=== PATIENT | female | born 1955 | race Two or more races ===

== ENCOUNTER 2017-05-26 20:36 | Emergency (ER) | payer SELFPAY ==
[2017-05-26] MEDS ORDERED: Ibuprofen TAB* 600 MG PO ONE (21:24)
--- NOTE | 2017-05-26 21:54 | RAD ---
Indication: LEFT wrist through elbow pain post injury. Comparison: No relevant prior exams available on the [facility] PACS for comparison. Technique: AP and lateral views LEFT radius and ulna. AP, lateral, and oblique views LEFT wrist. Report: Nonacute fracture at the trochlear notch of the olecranon of the humerus with partial osseous bridging and peripheral callus formation. No acute fracture of the forearm evident. Normal articular alignment. 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 Small elbow joint effusion. Normal articular alignment at the wrist. No fracture evident about the wrist. Polyarticular mild osteoarthritis at the wrist. Mild ulnar plus variance which increases stress on the triangle fibrocartilage. Mild nonfocal soft tissue swelling at the wrist. IMPRESSION: 1. No radiographic evidence for acute fracture at the forearm or wrist. 2. Fracture with at least partial osseous bridging at the trochlear notch of the olecranon process of the ulna. 3. Advanced elbow and mild wrist osteoarthritis.
--- NOTE | 2017-05-26 21:54 | RAD ---
Indication: LEFT wrist through elbow pain post injury. Comparison: No relevant prior exams available on the [facility] PACS for comparison. Technique: AP and lateral views LEFT radius and ulna. AP, lateral, and oblique views LEFT wrist. Report: Nonacute fracture at the trochlear notch of the olecranon of the humerus with partial osseous bridging and peripheral callus formation. No acute fracture of the forearm evident. Normal articular alignment. 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 Small elbow joint effusion. Normal articular alignment at the wrist. No fracture evident about the wrist. Polyarticular mild osteoarthritis at the wrist. Mild ulnar plus variance which increases stress on the triangle fibrocartilage. Mild nonfocal soft tissue swelling at the wrist. IMPRESSION: 1. No radiographic evidence for acute fracture at the forearm or wrist. 2. Fracture with at least partial osseous bridging at the trochlear notch of the olecranon process of the ulna. 3. Advanced elbow and mild wrist osteoarthritis.
--- NOTE | 2017-05-26 22:27 | ED ---
Upper Extremity Pain - HPI Summary HPI Summary: 62 female presents with complaints of elbow pain after a fall that occurred just prior to arrival. Patient was at work and was walking down a slippery ramp when she slipped and fell landing onto her left arm. She states her pain is from her elbow to her left wrist. She described the pain to feeling like she hit her funny bone but different. Admits to some numbness/tingling. Denies hand or finger injury. Did not hit her head. No LOC. Admits to her neck and left shoulder being sore but has FROM. No other complaints or injuries. Denies bruising and swelling at this time. No PMHx. Is currently taking suboxone. - History of Current Complaint Chief Complaint: EDExtremityUpper Stated Complaint: FALL/LEFT ARM-WRIST INJURY Time Seen by Provider: 05/26/17 21:02 Hx Obtained From: Patient Mechanism Of Injury: Fall From A Standing Position Onset/Duration: Started Hours Ago, Traumatic, Still Present, Worse Since Timing: Constant Severity Initially: Moderate Severity Currently: Moderate Pain Location: Elbow, Forearm, Wrist - left Character: Sharp, Aching, Throbbing Aggravating Factor(s): Movement Alleviating Factor(s): Nothing Associated Signs & Symptoms: Positive: Negative, Numbness/Tingling Related History: Dominant Hand Right - Allergies/Home Medications Allergies/Adverse Reactions: Allergies Allergy/AdvReac Type Severity Reaction Status Date / Time No Known Allergies Allergy Verified 02/19/16 20:00 PMH/Surg Hx/FS Hx/Imm Hx Endocrine/Hematology History: Denies: Hx Diabetes Cardiovascular History: Denies: Hx Hypotension Respiratory History: Reports: Hx Asthma, Hx Chronic Bronchitis GI History: Reports: Hx Ileostomy - trauma - since removed Sensory History: Reports: Hx Contacts or Glasses Opthamlomology History: Reports: Hx Contacts or Glasses Psychiatric History: Reports: Hx Suicide Attempt, Hx Substance Abuse - Surgical History Surgery Procedure, Year, and Place: Colostomy (age ~26); Csection X3 - Immunization History Date of Tetanus Vaccine: pt states unsure Date of Influenza Vaccine: pt states unsure Immunizations Up to Date: Yes Infectious Disease History: No Infectious Disease History: Denies: Traveled Outside the [place] in Last 30 Days - Family History Known Family History: Positive: None - Social History Alcohol Use: None Substance Use Type: Reports: None Substance Use Comment - Amount & Last Used: hx, on suboxone Hx Tobacco Use: Yes Smoking Status (MU): Light Every Day Tobacco Smoker Type: Cigarettes Review of Systems Constitutional: Negative Cardiovascular: Negative Respiratory: Negative Positive: Arthralgia, Myalgia, Decreased ROM - left elbow and forearm Skin: Negative Positive: Paresthesia All Other Systems Reviewed And Are Negative: Yes Physical Exam Triage Information Reviewed: Yes Vital Signs On Initial Exam: Initial Vitals Temp Pulse Resp BP Pulse Ox 97.3 F 70 16 154/90 100 05/26/17 20:40 05/26/17 20:40 05/26/17 20:40 05/26/17 20:40 05/26/17 20:40 Vital Signs Reviewed: Yes Appearance: Positive: Well-Appearing, Pain Distress - moderate with any movement of left arm Skin: Positive: Warm, Skin Color Reflects Adequate Perfusion, Dry, Other - no step off, crepitus or obvious deformity. no ecchymosis or edema.. Negative: Cold, Numb, Erythema @ Head/Face: Positive: Normal Head/Face Inspection Eyes: Positive: Normal, EOMI, TAMARA, Conjunctiva Clear ENT: Positive: Hearing grossly normal Neck: Positive: Supple, Nontender Respiratory/Lung Sounds: Positive: Clear to Auscultation, Breath Sounds Present. Negative: Rales, Rhonchi, Wheezes Cardiovascular: Positive: Normal, RRR, Pulses are Symmetrical in both Upper and Lower Extremities. Negative: Murmur, Rub Musculoskeletal: Positive: Limited @ - with elbow flexion and extension, Pain @ - left elbow on palpation and with movement. Negative: Interruption @, Edema Left, Edema Right Neurological: Positive: Normal, Sensory/Motor Intact - sensation intact and normal, Alert, Oriented to Person Place, Time, CN Intact II-III, NV Bundle Intact Distally, Normal Gait Psychiatric: Positive: Affect/Mood Appropriate AVPU Assessment: Alert - Natalia Coma Scale Best Eye Response: 4 - Spontaneous Best Motor Response: 6 - Obeys Commands Best Verbal Response: 5 - Oriented Procedures - Splinting Location: left elbow, forearm Hand-Made Type: plaster Splint: long arm Pre-Proc Neuro Vasc Exam: normal Post-Proc Neuro Vasc Exam: normal, unchanged from pre-exam Diagnostics - Vital Signs Vital Signs Temp Pulse Resp BP Pulse Ox 05/26/17 20:40 97.3 F 70 16 154/90 100 - Laboratory Lab Statement: Any lab studies that have been ordered have been reviewed, and results considered in the medical decision making process. - Radiology left forearm Xray Interpretation: Positive (See Comments) - 1. No radiographic evidence for acute fracture at the forearm or wrist. 2. Fracture with at least partial osseous bridging at the trochlear notch of the olecranon process of the ulna. 3. Advanced elbow and mild wrist osteoarthritis. left wrist Xray Interpretation: No Acute Changes Radiology Interpretation Completed By: Radiologist Course/Dx - Course Course Of Treatment: Istop Reference #: [id number]. Given toradol for pain due to patient's preference and being on suboxone. X-ray obtained and positive for trochlear notch fracture of left elbow. Elbow splinted and placed in sling. Follow up ortho. Naproxen for pain at home. RICE. Aware of worsening signs and symptoms to watch out for and return if occur. - Diagnoses Differential Diagnosis/HQI/PQRI: Positive: Contusion, Fracture (Closed), Hematoma, Strain, Sprain Provider Diagnoses: Elbow fracture, left Discharge - Discharge Plan Condition: Stable Disposition: HOME Prescriptions: Naproxen TAB* [Naprosyn 250 mg TAB*] 500 mg PO Q8H PRN #30 tab PRN Reason: Pain Patient Education Materials: Elbow Fracture (ED), Splint Care (ED) Forms: *Work Release Referrals: Liudmila Akbar MD [Primary Care Provider] - Vani Acosta MD [Medical Doctor] - Additional Instructions: Rest, elevate and ice your elbow. Do not remove splint. Do not get splint wet. Take Naproxen starting tomorrow to help with pain and inflammation. Take with food to avoid upset stomach. If you develop worsening pain, burning or severe numbness tingling along with cold fingers, or unable to move fingers please seek medical attention immediately. Make an appointment with Orthopedics to be seen this week. Follow up with PCP.
[2017-05-26] MEDS ORDERED: Ketorolac INJ* 60 MG/2 ML VIAL IM ONE (22:47)
[2017-05-26] MEDS ORDERED: Ketorolac INJ* 60 MG/2 ML VIAL ONE (22:49)
[2017-05-26 23:29] VITALS: BP 131/81
== END 2017-05-26 23:28 | disposition home or self-care (01) ==
LOC: ED 20:36
DX: S42.402A Unspecified fracture of lower end of left humerus, initial encounter for closed fracture (principal); W19.XXXA Unspecified fall, initial encounter; Y93.9 Activity, unspecified; Y92.9 Unspecified place or not applicable; F17.210 Nicotine dependence, cigarettes, uncomplicated
CPT/HCPCS: 96372; 99282; A9270-GY; J1885

== ENCOUNTER 2017-11-06 15:21 | Emergency (ER) | payer OTHER ==
[2017-11-06 16:10] VITALS: BP 143/102
--- NOTE | 2017-11-06 16:40 | RAD ---
Indication: Shortness of breath. 2 views of the chest including dual energy PA views demonstrate no mediastinal shift. Heart is of normal size and configuration. Hyperinflated lung queen are noted. When compared to previous exam of February 19, 2016 no significant change is noted. IMPRESSION: Hyperinflated lung queen without evidence of pneumonia.
[2017-11-06] MEDS ORDERED: Albuterol/Ipratropium NEB.SOL* Albuterol 2.5 MG/Ipratropium 0.5 MG 3 ML INH ONE (17:04)
[2017-11-06] MEDS ORDERED: methylPREDNISolone 125 MG* 2 ML VIAL IV ONE (17:04)
[2017-11-06 17:07] LABS: Hematocrit 38 % (35-47); Hemoglobin 12.2 g/dl (12.0-16.0); Mean Corpuscular HGB Conc 32 g/dl (31-36); Mean Corpuscular Hemoglobin 26 pg (27-31); Mean Corpuscular Volume 80 fL (80-97); Mean Platelet Volume 8 um3 (7.4-10.4); Red Blood Count 4.71 10^6/ul (4.0-5.4); Red Cell Distribution Width 15 % (10.5-15); White Blood Count 4.9 10^3/ul (3.5-10.8)
[2017-11-06 17:15] LABS: Albumin 3.6 g/dL (3.2-5.2); C Reactive Protein 13.04 mg/L (< 5.00); Calcium 9.2 mg/dL (8.6-10.3); EGFR African American 87.4 (>60); Globulin 4.8 g/dL (2-4); Potassium 3.8 mmol/L (3.5-5.0); Total Bilirubin 0.2 mg/dL (0.2-1.0); Total Protein 8.4 g/dL (6.4-8.9)
--- NOTE | 2017-11-08 18:54 | ED ---
Barry Salvador Angela, scribed for Jorge Ellsworth MD on 11/06/17 at 1604 . HPI Chest Pain - HPI Summary HPI Summary: This pt is a 62 y/o female presenting to [facility] c/o chest pressure since today. Pt reports that on October 16 she was diagnosed for bronchitis and was given antibiotics. She states her cough and yellow sputum have resolved. Pt describes "something sitting on my chest" and pressure. Pt notes she has to stop to catch her breath while ambulating. She denies nausea, vomiting, fever, light- headedness, dizziness. Pt is a current smoker (has been for a long time). She denies any PMHx. Pt only takes vitamins every day. - History of Current Complaint Chief Complaint: EDShortnessOfBreath Time Seen by Provider: 11/06/17 15:55 Hx Obtained From: Patient Onset/Duration: Started Days Ago, Still Present Timing: Lasting Days Pain Intensity: 0 Chest Pain Location: Diffuse Chest Pain Radiates: No Character: Pressure/Squeezing Associated Signs and Symptoms: Negative: Dizziness, Fever, Lightheadedness, Nausea, Cough, Vomiting - Additional Pertinent History Primary Care Physician: [id number] - Allergy/Home Medications Allergies/Adverse Reactions: Allergies Allergy/AdvReac Type Severity Reaction Status Date / Time No Known Allergies Allergy Verified 07/11/17 09:41 PMH/Surg Hx/FS Hx/Imm Hx Endocrine/Hematology History: Denies: Hx Diabetes Cardiovascular History: Denies: Hx Hypotension, Hx Hypertension, Hx Pacemaker/ICD Respiratory History: Reports: Hx Asthma, Hx Chronic Bronchitis GI History: Reports: Hx Ileostomy - trauma - since removed History: Denies: Hx Renal Disease Sensory History: Reports: Hx Contacts or Glasses Denies: Hx Hearing Aid Opthamlomology History: Reports: Hx Contacts or Glasses Psychiatric History: Reports: Hx Suicide Attempt, Hx Substance Abuse Denies: Hx Panic Disorder - Surgical History Surgery Procedure, Year, and Place: Colostomy (age ~26) - RESECTION OF COLON AND COLONOSCTOMY CLOSED;. Csection X3 - Immunization History Date of Tetanus Vaccine: pt states unsure Date of Influenza Vaccine: pt states unsure Infectious Disease History: No Infectious Disease History: Denies: Traveled Outside the [place] in Last 30 Days - Family History Known Family History: Positive: Cardiac Disease - [place], Hypertension - Social History Alcohol Use: None Substance Use Type: Reports: None Substance Use Comment - Amount & Last Used: hx, on suboxone Hx Tobacco Use: Yes Smoking Status (MU): Light Every Day Tobacco Smoker Type: Cigarettes Review of Systems Negative: Fever, Chills Cardiovascular: Other - chest pressure Negative: Cough Negative: Vomiting, Nausea Neurological: Other - NEG: light-headedness, dizziness All Other Systems Reviewed And Are Negative: Yes Physical Exam - Summary Physical Exam Summary: VITAL SIGNS: Reviewed. GENERAL: Patient is a well-developed and nourished female who is lying comfortable in the stretcher. Patient is not in any acute respiratory distress. HEAD AND FACE: No signs of trauma. No ecchymosis, hematomas or skull depressions. No sinus tenderness. EYES: PERRLA, EOMI x 2, No injected conjunctiva, no nystagmus. EARS: Hearing grossly intact. Ear canals and tympanic membranes are within normal limits. MOUTH: Oropharynx within normal limits. NECK: Supple, trachea is midline, no adenopathy, no JVD, no carotid bruit, no c- spine tenderness, neck with full ROM. CHEST: Symmetric, no tenderness at palpation LUNGS: Diffuse wheezing in both lungs. CVS: Regular rate and rhythm, S1 and S2 present, no murmurs or gallops appreciated. ABDOMEN: Soft, non-tender. No signs of distention. No rebound no guarding, and no masses palpated. Bowel sounds are normal. EXTREMITIES: FROM in all major joints, no edema, no cyanosis or clubbing. NEURO: Alert and oriented x 3. No acute neurological deficits. Speech is normal and follows commands. SKIN: Dry and warm Triage Information Reviewed: Yes Vital Signs On Initial Exam: Initial Vitals Temp Pulse Resp BP Pulse Ox 98.4 F 80 20 138/88 98 11/06/17 15:39 11/06/17 15:39 11/06/17 15:39 11/06/17 15:39 11/06/17 15:39 Vital Signs Reviewed: Yes Diagnostics - Vital Signs Vital Signs Temp Pulse Resp BP Pulse Ox 11/06/17 15:39 98.4 F 80 20 138/88 98 - Laboratory Result Diagrams: 11/06/17 16:43 11/06/17 16:43 Lab Statement: Any lab studies that have been ordered have been reviewed, and results considered in the medical decision making process. - Radiology Chest XR Xray Interpretation: Positive (See Comments) - IMPRESSION: Hyperinflated lung queen without evidence of pneumonia. ED physician has reviewed this radiology report and agrees. Radiology Interpretation Completed By: Radiologist - EKG 1632 Cardiac Rate: NL EKG Rhythm: Sinus Rhythm - at 67 bpm EKG Interpretation: Has diffuse T wave abnormalities Chest Pain Course/Dx - Course Assessment/Plan: This pt is a 62 y/o female presenting to [facility] c/o chest pressure since today. Pt reports that on October 16 she was diagnosed for bronchitis and was given antibiotics. She states her cough and yellow sputum have resolved. Pt describes "something sitting on my chest" and pressure. Pt notes she has to stop to catch her breath while ambulating. She denies nausea, vomiting, fever, light-headedness, dizziness. Pt is a current smoker (has been for a long time). She denies any PMHx. Pt only takes vitamins every day. Test results without any significant abnormalities except for CRP of 13.0. Influenza A and B are negative. Chest XR shows hyperinflated lung queen without evidence of pneumonia. In the ED course, the pt was given albuterol, solu-medrol, and after these medications the symptoms improved. Pt will be discharged home with follow up from her PCP. Pt is hemodynamically stable, alert and oriented x3. - Diagnoses Provider Diagnoses: Wheezing Discharge - Discharge Plan Condition: Stable Disposition: HOME Prescriptions: Albuterol HFA INHALER* [Ventolin HFA Inhaler*] 1 puff INH Q4H PRN #1 mdi PRN Reason: Wheezing predniSONE TAB* [Deltasone TAB*] 40 mg PO DAILY #8 tab Patient Education Materials: Wheezing (ED) Referrals: Lucas Rodriguez MD [Primary Care Provider] - Additional Instructions: Please follow up with your primary care provider. RETURN TO THE ED FOR ANY WORSENING OR NEW SYMPTOMS. The documentation as recorded by the Barry thompson Angela accurately reflects the service I personally performed and the decisions made by me, Jorge Ellsworth MD.
== END 2017-11-06 18:17 | disposition home or self-care (01) ==
LOC: ED 15:21
DX: R06.2 Wheezing (principal); J45.909 Unspecified asthma, uncomplicated; J42 Unspecified chronic bronchitis; F17.210 Nicotine dependence, cigarettes, uncomplicated
CPT/HCPCS: 36415; 71020; 80053; 82550; 83880; 84484; 85025; 86140; 87502; 93005; 94640; 94760; 99282; A9270-GY; J2930

== ENCOUNTER 2021-09-03 10:46 | Inpatient (IN) ==
[2021-09-03 11:46] LABS: ABS Lymphocytes 0.9 10^3/ul (1.0-4.8); ABS Monocytes 0.4 10^3/ul (0-0.8); Eosinophil % 0.6 %; Hematocrit 40 % (35-47); Hemoglobin 13.2 g/dL (12.0-16.0); Lymphocyte % 26.7 %; Mean Corpuscular HGB Conc 33 g/dL (31-36); Mean Corpuscular Hemoglobin 27 pg (27-31); Mean Corpuscular Volume 81 fL (80-97); Mean Platelet Volume 8.2 fL (7.4-10.4); Nucleated Red Blood Cells % 0.2; Platelet Count 285 10^3/uL (150-450); Red Blood Count 4.87 10^6 /uL (3.70-4.87); Red Cell Distribution Width 14 % (10-15); White Blood Count 3.3 10^3/uL (3.5-10.8)
[2021-09-03 11:54] LABS: INR 1.04 (0.86-1.15)
[2021-09-03 12:09] LABS: Calcium 9.4 mg/dL (8.6-10.3); Globulin 4.2 g/dL (2-4); Total Bilirubin 0.3 mg/dL (0.2-1.0); Total Protein 8.2 g/dL (6.4-8.9)
[2021-09-03 14:30] LABS: Rapid COVID-19 Molecular Detected (Undetected)
[2021-09-03] MEDS ORDERED: CASIRIVI/IMDEVI-MAB 600-600 MG 10 ML in NS 0.9% 100 ml BAG 100 ML IV ONE (15:07)
[2021-09-03] MEDS ORDERED: NS 0.9% 50 ML 50 ML IV ONE (15:39)
[2021-09-03] MEDS ORDERED: CASIRIVIMAB/IMDEVIMAB SUBCUT 600-600MG/10 ML SUBCUT ONE (15:59)
[2021-09-03] MEDS ORDERED: Albuterol HFA INHALER 8 gm MDI INH ONE ×2 (18:35→18:44)
[2021-09-03] MEDS ORDERED: Albuterol HFA INHALER 8 gm MDI INH PRN (19:51)
[2021-09-03 21:43] LABS: C Reactive Protein 7.09 mg/L (<8.01)
[2021-09-03] MEDS: Albuterol HFA INHALER 8 gm MDI INH ONE (22:18)
[2021-09-03] MEDS: Enoxaparin 40 MG/0.4 ML SYR SUBCUT SCH (22:21)
[2021-09-03 22:47] LABS: Fibrinogen 417.3 mg/dL (110.8-404.3)
[2021-09-03 23:13] LABS: Ferritin 68.2 ng/mL (11-307)
[2021-09-03] MEDS ORDERED: Iohexol 350 (CONTRAST) 500 ML MDV IV ONE (23:37)
[2021-09-04] MEDS ORDERED: Remdesivir 100 mg Vial 200 MG in NS 0.9% 250 ml 210 ML IV ONE
[2021-09-04 01:52] LABS: Urine Appearance Clear; Urine Bilirubin Negative (Negative); Urine Blood 1+ (Negative); Urine Color Yellow; Urine Glucose Negative (Negative); Urine Ketones Trace (Negative); Urine Nitrite Negative (Negative); Urine Protein 1+(30 mg/dL) (Negative); Urine Specific Gravity 1.044 (1.002-1.030); Urine Urobilinogen Negative (Negative)
[2021-09-04 02:00] LABS: Urine Bacteria 1+ (Absent); Urine Red Blood Cell 1+(3-5/hpf) (Absent); Urine Squamous Epithelial Cell Present (Absent); Urine White Blood Cell Trace(0-5/hpf) (Absent)
[2021-09-04] MEDS: Albuterol HFA INHALER 8 gm MDI INH ONE (02:14)
[2021-09-04 06:17] LABS: INR 1.07 (0.86-1.15)
[2021-09-04 06:26] LABS: Albumin 3.7 g/dL (3.2-5.2); Albumin/Globulin Ratio 0.9 (1-3); Calcium 8.9 mg/dL (8.6-10.3); Globulin 4.2 g/dL (2-4); Potassium 3.9 mmol/L (3.5-5.0); Total Bilirubin 0.3 mg/dL (0.2-1.0); Total Protein 7.9 g/dL (6.4-8.9)
[2021-09-04] MEDS ORDERED: Perflutren Lipid Microsphere 3 ML VIAL ONE (10:18)
[2021-09-04] MEDS ORDERED: Senna TAB 8.6 mg TAB PO PRN ×2 (10:53→11:03)
[2021-09-04] MEDS ORDERED: Senna/Docusate 8.6/50 mg (NF) TAB PO PRN (10:59)
[2021-09-04] MEDS ORDERED: Docusate LIQ 100 MG/10 ML UDC PO PRN (11:04)
[2021-09-04] MEDS: EMTRICITABINE PO SCH (18:21)
[2021-09-04] MEDS: [UNRECOGNIZED DRUG - OTHER] PO SCH (18:21)
[2021-09-04] MEDS: RILPIVIRINE PO SCH (18:21)
[2021-09-04] MEDS: Remdesivir 100 mg Vial 100 MG in NS 0.9% 250 ml 230 ML IV SCH (20:11)
[2021-09-04] MEDS: Enoxaparin 40 MG/0.4 ML SYR SUBCUT SCH (20:19)
[2021-09-04] MEDS ORDERED: cefTRIAXone 1 gm/50 mL NS BAG 1 GM/50 ML BAG IVPB SCH (21:00)
[2021-09-05 06:37] LABS: ABS Lymphocytes 1.4 10^3/ul (1.0-4.8); ABS Monocytes 0.3 10^3/ul (0-0.8); ABS Neutrophils 1.6 10^3/ul (1.5-7.7); Eosinophil % 0.1 %; Hematocrit 37 % (35-47); Lymphocyte % 42.5 %; Mean Corpuscular HGB Conc 33 g/dL (31-36); Mean Corpuscular Hemoglobin 26 pg (27-31); Mean Corpuscular Volume 80 fL (80-97); Mean Platelet Volume 8.3 fL (7.4-10.4); Nucleated Red Blood Cells % 0.2; Platelet Count 254 10^3/uL (150-450); Red Blood Count 4.55 10^6 /uL (3.70-4.87); Red Cell Distribution Width 14 % (10-15); White Blood Count 3.3 10^3/uL (3.5-10.8)
[2021-09-05 06:46] LABS: INR 0.96 (0.86-1.15)
[2021-09-05 07:04] LABS: Albumin 3.5 g/dL (3.2-5.2); Albumin/Globulin Ratio 0.9 (1-3); Calcium 9.3 mg/dL (8.6-10.3); Globulin 3.7 g/dL (2-4); Potassium 3.3 mmol/L (3.5-5.0); Total Bilirubin 0.2 mg/dL (0.2-1.0); Total Protein 7.2 g/dL (6.4-8.9)
[2021-09-05] MEDS ORDERED: Potassium Chlor 10 meq TAB PO ONE (07:54)
[2021-09-05] MEDS: RILPIVIRINE PO SCH (08:22)
[2021-09-05] MEDS: EMTRICITABINE PO SCH (08:22)
[2021-09-05] MEDS: [UNRECOGNIZED DRUG - OTHER] PO SCH (08:22)
[2021-09-05 15:11] LABS: Adenovirus Undetected (Undetected); Bordetella parapertussis Undetected (Undetected); Bordetella pertussis Undetected (Undetected); Chlamydophila pneumoniae Undetected (Undetected); Coronavirus 229E Undetected (Undetected); Coronavirus HKU1 Undetected (Undetected); Coronavirus NL63 Undetected (Undetected); Coronavirus OC43 Undetected (Undetected); Human Metapneumovirus Undetected (Undetected); Human Rhinovirus/Enterovirus Undetected (Undetected); Influenza A Undetected (Undetected); Influenza B Undetected (Undetected); Mycoplasmoides pneumoniae Undetected (Undetected); Parainfluenza Virus 1 Undetected (Undetected); Parainfluenza Virus 2 Undetected (Undetected); Parainfluenza Virus 3 Undetected (Undetected); Parainfluenza Virus 4 Undetected (Undetected); Respiratory Syncytial Virus Undetected (Undetected); Specimen Source NASOPHARYNGEAL SWAB
[2021-09-05] MEDS ORDERED: Potassium Chlor 20 meq TAB.ER PO ONE (16:00)
[2021-09-05] MEDS: Enoxaparin 40 MG/0.4 ML SYR SUBCUT SCH (21:38)
[2021-09-05] MEDS: Remdesivir 100 mg Vial 100 MG in NS 0.9% 250 ml 230 ML IV SCH (21:39)
[2021-09-06 07:47] LABS: ABS Basophils 0.1 10^3/ul (0-0.2); ABS Lymphocytes 2.4 10^3/ul (1.0-4.8); ABS Monocytes 0.4 10^3/ul (0-0.8); ABS Neutrophils 1.6 10^3/ul (1.5-7.7); Eosinophil % 0.2 %; Hematocrit 39 % (35-47); Hemoglobin 13.1 g/dL (12.0-16.0); Lymphocyte % 53.9 %; Mean Corpuscular HGB Conc 33 g/dL (31-36); Mean Corpuscular Hemoglobin 27 pg (27-31); Mean Corpuscular Volume 81 fL (80-97); Mean Platelet Volume 8.7 fL (7.4-10.4); Nucleated Red Blood Cells % 0.1; Platelet Count 294 10^3/uL (150-450); Red Blood Count 4.84 10^6 /uL (3.70-4.87); Red Cell Distribution Width 15 % (10-15); White Blood Count 4.5 10^3/uL (3.5-10.8)
[2021-09-06 07:59] LABS: INR 1.01 (0.86-1.15)
[2021-09-06 08:04] LABS: Albumin 3.9 g/dL (3.2-5.2); Albumin/Globulin Ratio 0.9 (1-3); Calcium 9.6 mg/dL (8.6-10.3); Globulin 4.3 g/dL (2-4); Magnesium 2.1 mg/dL (1.9-2.7); Potassium 3.8 mmol/L (3.5-5.0); Total Bilirubin 0.4 mg/dL (0.2-1.0); Total Protein 8.2 g/dL (6.4-8.9)
[2021-09-06] MEDS ORDERED: Potassium Chlor 10 meq TAB PO ONE (08:11)
[2021-09-06] MEDS: EMTRICITABINE PO SCH (10:02)
[2021-09-06] MEDS: [UNRECOGNIZED DRUG - OTHER] PO SCH (10:02)
[2021-09-06] MEDS: RILPIVIRINE PO SCH (10:02)
[2021-09-06 16:31] VITALS: BP 118/75
[2021-09-07 16:51] LABS: % CD3 82 % (58-86); % CD4 51 % (32-64); % CD8 29 % (8-40); 4/8 H/S Ratio 1.8 (>=0.9); Absolute CD45 Count 2.41 thou/mcL (0.82-2.84); CD3 1962 cells/mcL (550-2202); CD4 1220 cells/mcL (365-1437); CD8 690 cells/mcL (80-846)
== END 2021-09-06 16:55 | disposition home or self-care (01) | DRG 177 ==
LOC: ED 10:46 → EDHOLD 19:43 → SUATTDRO 19:43 → MED 09-04 01:02
PROVIDERS: ADMIT Internal Medicine; ATTEND Hospitalist

== ENCOUNTER 2022-10-07 11:22 | Inpatient (IN) ==
[2022-10-07 12:33] LABS: ABS Basophils 0.1 10^3/ul (0-0.2); ABS Eosinophils 0.1 10^3/ul (0-0.6); ABS Lymphocytes 1.2 10^3/ul (1.0-4.8); ABS Monocytes 0.3 10^3/ul (0-0.8); ABS Neutrophils 2.1 10^3/ul (1.5-7.7); Eosinophil % 2.3 %; Hematocrit 38 % (35-47); Lymphocyte % 32.7 %; Mean Corpuscular HGB Conc 31 g/dL (31-36); Mean Corpuscular Hemoglobin 26 pg (27-31); Mean Corpuscular Volume 83 fL (80-97); Mean Platelet Volume 8.7 fL (7.4-10.4); Nucleated Red Blood Cells % 0.1; Platelet Count 238 10^3/uL (150-450); Red Blood Count 4.62 10^6 /uL (3.70-4.87); Red Cell Distribution Width 14 % (10-15); White Blood Count 3.8 10^3/uL (3.5-10.8)
[2022-10-07 12:47] LABS: INR 0.88 (0.89-1.11)
[2022-10-07 12:56] LABS: High Sens Troponin Baseline 3 pg/mL (<15)
[2022-10-07 13:01] LABS: ALT 18 U/L (7-52); Albumin/Globulin Ratio 1.2 (1-3); Alkaline Phosphatase 106 U/L (35-149); Blood Urea Nitrogen 20 mg/dL (6-24); CO2 Carbon Dioxide 28 mmol/L (22-32); Calcium 9.6 mg/dL (8.6-10.3); Chloride 105 mmol/L (101-111); Globulin 3.3 g/dL (2-4); Glucose 117 mg/dL (70-100); Magnesium 2.2 mg/dL (1.9-2.7); Sodium 142 mmol/L (135-145); Total Protein 7.3 g/dL (6.4-8.9); eGFR CKD-EPI 90.6 (>60)
[2022-10-07 13:03] LABS: Anion Gap 9 mmol/L (2-11)
[2022-10-07 14:07] LABS: High Sensitivity Troponin 1 Hr 4 pg/mL (<15); Potassium Redraw 4.3 mmol/L (3.5-5.0)
[2022-10-07] MEDS ORDERED: Iohexol 350 (CONTRAST) 500 ML MDV IV ONE (14:19)
[2022-10-07] MEDS ORDERED: Ondansetron ODT 4 mg TAB 4 MG TAB PO PRN (17:49)
[2022-10-07] MEDS ORDERED: Enoxaparin 40 MG/0.4 ML SYR SUBCUT SCH (18:00)
[2022-10-07 20:49] LABS: Magnesium 2.2 mg/dL (1.9-2.7)
[2022-10-08 07:19] LABS: Calcium 9.4 mg/dL (8.6-10.3); HDL Cholesterol 40.1 mg/dL; Magnesium 2.2 mg/dL (1.9-2.7); Potassium 4.2 mmol/L (3.5-5.0); eGFR CKD-EPI 83.7 (>60)
[2022-10-08] MEDS: Emtricitabine/Rilpivirine/Teno (Odefsey) 200/25/25 TABLET PO SCH ×2 (08:49→11:51)
[2022-10-08 11:53] VITALS: BP 114/58
== END 2022-10-08 13:05 | disposition home or self-care (01) | DRG 312 ==
LOC: ED 11:22 → EDHOLD 17:37 → MEDTELE 21:09
PROVIDERS: ADMIT Internal Medicine; ATTEND Internal Medicine

== ENCOUNTER 2024-10-12 09:02 | Observation (INO) ==
[2024-10-12 09:28] LABS: ABS Eosinophils 0.1 10^3/uL (0.0-0.5); ABS Lymphocytes 1.8 10^3/uL (1.0-4.8); ABS Monocytes 0.4 10^3/uL (0.0-0.9); ABS Nucleated RBC 0.01 10^3/ul; Eosinophil % 1.8 %; Hematocrit 40.2 % (35-45); Hemoglobin 13.1 g/dL (11.5-14.3); Lymphocyte % 42.5 %; Mean Corpuscular Hemoglobin 26.6 pg (27-33); Mean Corpuscular Hgb Conc 32.7 g/dL (31-36); Mean Corpuscular Volume 81.5 fL (80-97); Mean Platelet Volume 8.7 fL (7.5-11.2); Nucleated Red Blood Cells % 0.2 %/100WBC (0.0-0.8); Platelet Count 303 10^3/uL (150-450); Red Blood Count 4.93 10^6/uL (3.63-4.92); Red Cell Distribution Width 13.9 % (12-17); White Blood Count 4.3 10^3/uL (3.8-11.8)
[2024-10-12 09:40] LABS: Activated Partial Thrombo Time 26.7 seconds (26.0-38.0); INR 0.98 (0.85-1.14)
[2024-10-12] MEDS: Iodixanol 320 (CONTRAST) 100 ML SDV IV ONE (10:18)
[2024-10-12 10:29] LABS: Albumin 4.4 g/dL (3.2-5.2); Albumin/Globulin Ratio 1.3 (1-3); Calcium 9.7 mg/dL (8.6-10.3); Creatinine, Serum 0.84 mg/dL (0.51-0.95); Direct Bilirubin 0.1 mg/dL (0.03-0.18); Globulin 3.4 g/dL (2-4); HDL Cholesterol 40.9 mg/dL; Indirect Bilirubin 0.7 mg/dL (0.3-1.0); Potassium 4.2 mmol/L (3.5-5.0); Total Bilirubin 0.8 mg/dL (0.2-1.0); Total Protein 7.8 g/dL (6.4-8.9); eGFR CKD-EPI 75.6 (>60)
[2024-10-12 10:56] LABS: High Sensitivity Troponin 1 Hr 5 pg/mL (<15)
[2024-10-12 11:43] LABS: Urine Appearance Clear; Urine Bacteria Absent /HPF (Absent); Urine Bilirubin Negative (Negative); Urine Blood Negative (Negative); Urine Color Light-Yellow; Urine Glucose Negative (Negative); Urine Ketones Negative (Negative); Urine Nitrite Negative (Negative); Urine Protein 1+ (>=30 mg/dL) (Negative); Urine Red Blood Cell Trace(0-2/hpf) /HPF (0-Trace); Urine Specific Gravity >1.050 (1.002-1.030); Urine Squamous Epithelial Cell Present /HPF (Absent); Urine Urobilinogen Negative (Negative); Urine White Blood Cell Trace(0-5/hpf) /HPF (0-Trace); Urine pH 6.5 (5.0-8.0)
[2024-10-12] MEDS ORDERED: Sulfur Hexaflouride MICROSPHR 25 MG VIAL IV PRN (15:49)
[2024-10-12] MEDS: Enoxaparin 40 MG/0.4 ML SYR SUBCUT SCH (18:00)
[2024-10-12] MEDS: Emtricitabine/Rilpivirine/Teno (Odefsey) 200/25/25 TABLET PO SCH (18:02)
[2024-10-12 18:07] LABS: TSH Ultra Thyroid Stim Horm 1.45 mcIU/mL (0.34-5.60)
[2024-10-12 18:18] LABS: Folate 14.66 ng/mL (5.90-24.80)
[2024-10-13 07:18] LABS: Hematocrit 41.1 % (35-45); Hemoglobin 13.4 g/dL (11.5-14.3); Mean Corpuscular Hemoglobin 26.8 pg (27-33); Mean Corpuscular Hgb Conc 32.7 g/dL (31-36); Mean Corpuscular Volume 82.1 fL (80-97); Red Blood Count 5.01 10^6/uL (3.63-4.92); White Blood Count 3.4 10^3/uL (3.8-11.8)
[2024-10-13 07:43] LABS: ABS Basophils 0.1 10^3/uL (0.0-0.1); ABS Eosinophils 0.1 10^3/uL (0.0-0.5); ABS Lymphocytes 1.5 10^3/uL (1.0-4.8); ABS Monocytes 0.4 10^3/uL (0.0-0.9); ABS Neutrophils 1.3 10^3/uL (1.5-7.6); ABS Nucleated RBC 0.01 10^3/ul; Calcium 9.5 mg/dL (8.6-10.3); Creatinine, Serum 0.81 mg/dL (0.51-0.95); Eosinophil % 2.5 %; Lymphocyte % 43.8 %; Magnesium 2.2 mg/dL (1.9-2.7); Mean Platelet Volume 8.4 fL (7.5-11.2); Nucleated Red Blood Cells % 0.4 %/100WBC (0.0-0.8); Platelet Count 247 10^3/uL (150-450); Potassium 4.1 mmol/L (3.5-5.0)
[2024-10-13] MEDS ORDERED: Sulfur Hexaflouride MICROSPHR 25 MG VIAL ONE (11:20)
[2024-10-13] MEDS: Pneumococcal 20-Valent Conj 0.5 ML SYR Vaccine IM ONE (13:03)
[2024-10-13] MEDS: Influenza Vaccine *TRI* 2024-25* 0.5 ML SYRINGE IM ONE (13:56)
[2024-10-13] MEDS: COVID VAC 24-25 (12+) (Moderna) Syringe 0.5 mL IM ONE (13:58)
[2024-10-13 14:51] VITALS: BP 134/88
== END 2024-10-13 15:39 | disposition home or self-care (01) ==
LOC: ED 09:02 → EDHOLD 09:02 → MEDTELE 14:53
PROVIDERS: ADMIT Student in an Organized Health Care Education/Training Program; ATTEND Student in an Organized Health Care Education/Training Program